=== PATIENT | female | born 1965 | race Caucasian/White ===

== ENCOUNTER 2019-06-10 20:59 | Emergency (ER) | payer OTHER ==
[2019-06-10] MEDS ORDERED: Ibuprofen 800 MG TAB ONE (21:55)
--- NOTE | 2019-06-10 23:21 | RAD ---
LEFT FOOT THREE VIEWS: 06/10/19 There is a small chip fracture at the base of the middle phalanx of the fourth toe at the PIP joint. There is minimal displacement. The remainder of the foot appears intact. IMPRESSION: Chip fracture of the middle phalanx of the fourth toe. POS: HOME
== END 2019-06-10 22:07 | disposition home or self-care (01) ==
LOC: BURERS 20:59
DX: S92.522A Displaced fracture of middle phalanx of left lesser toe(s), initial encounter for closed fracture (principal); J44.9 Chronic obstructive pulmonary disease, unspecified; F17.210 Nicotine dependence, cigarettes, uncomplicated; W22.8XXA Striking against or struck by other objects, initial encounter

== ENCOUNTER 2022-04-19 10:15 | Emergency (ER) | payer OTHER ==
[2022-04-19] MEDS ORDERED: Ibuprofen 200 MG TAB ONE (10:32)
[2022-04-19] MEDS ORDERED: Cyclobenzaprine 10 MG TAB ONE (11:06)
== END 2022-04-19 11:25 | disposition home or self-care (01) ==
LOC: BURERS 10:15
DX: U07.1 COVID-19 (principal); J06.9 Acute upper respiratory infection, unspecified; M62.830 Muscle spasm of back; H44.9 Unspecified disorder of globe; F17.210 Nicotine dependence, cigarettes, uncomplicated; Z79.899 Other long term (current) drug therapy
CPT/HCPCS: 99283; U0003; U0005

== ENCOUNTER 2022-10-05 16:25 | Emergency (ER) | payer OTHER ==
[2022-10-05] MEDS ORDERED: traMADol HCl 50 MG TAB ONE ×2 (17:19→17:38)
[2022-10-05] MEDS ORDERED: Ketorolac Tromethamine 60 MG/2 ML VIAL ONE (17:19)
== END 2022-10-05 18:12 | disposition home or self-care (01) ==
LOC: BURERS 16:25
DX: M54.50 Low back pain, unspecified (principal); J44.9 Chronic obstructive pulmonary disease, unspecified; F17.210 Nicotine dependence, cigarettes, uncomplicated; X50.0XXA Overexertion from strenuous movement or load, initial encounter; Y93.F2 Activity, caregiving, lifting; Z79.899 Other long term (current) drug therapy
CPT/HCPCS: 72100; 72170; 96372; J1885